=== PATIENT | female | born 1995 | race Two or more races ===

== ENCOUNTER 2020-08-27 12:03 | Emergency (ER) | payer OTHER ==
[~2020-08-27] VITALS: Ht 152.4 cm; Wt 41.3 kg
[2020-08-27] MEDS ORDERED: ZITHROMAX500 MG PO (15:23)
== END 2020-08-27 15:42 | disposition home or self-care (01) ==
LOC: ER 12:03
DX: B34.9 Viral infection, unspecified (principal); B96.0 Mycoplasma pneumoniae [M. pneumoniae] as the cause of diseases classified elsewhere; Z03.818 Encounter for observation for suspected exposure to other biological agents ruled out

== ENCOUNTER 2021-04-15 10:01 | Outpatient (CLI) | payer OTHER ==
[~2021-04-15 10:01] MED LIST: ZITHROMAX500 MG PO
== END 2021-04-15 10:09 | disposition home or self-care (01) ==
LOC: LAB 10:01
PROVIDERS: ATTEND Family Medicine
DX: Z03.818 Encounter for observation for suspected exposure to other biological agents ruled out (principal); Z11.52 Encounter for screening for COVID-19

== ENCOUNTER 2021-05-04 08:00 | Outpatient (CLI) | payer OTHER | END 2021-05-04 08:30 | disposition home or self-care (01) | LOC: PPH VACUNA 08:00 | DX: Z23 Encounter for immunization (principal) ==

== ENCOUNTER 2021-08-19 08:00 | Outpatient (CLI) | payer OTHER | END 2021-08-19 08:30 | disposition home or self-care (01) | LOC: PPH VACUNA 08:00 | PROVIDERS: ATTEND Emergency Medicine Pediatric Emergency Medicine | DX: Z23 Encounter for immunization (principal) ==

== ENCOUNTER 2021-09-06 21:48 | Emergency (ER) | payer OTHER ==
[~2021-09-06] VITALS: Ht 152.4 cm; Wt 49.0 kg
== END 2021-09-07 01:34 | disposition home or self-care (01) ==
LOC: ER 21:48
DX: J45.909 Unspecified asthma, uncomplicated (principal); Z03.818 Encounter for observation for suspected exposure to other biological agents ruled out

== ENCOUNTER 2021-12-04 09:00 | Outpatient (CLI) | payer OTHER | END 2021-12-04 09:15 | disposition home or self-care (01) | LOC: PPH VACUNA 09:00 | PROVIDERS: ATTEND Emergency Medicine Pediatric Emergency Medicine | DX: Z23 Encounter for immunization (principal) ==

== ENCOUNTER 2022-01-01 08:32 | Emergency (ER) | payer OTHER ==
[~2022-01-01] VITALS: Ht 152.4 cm; Wt 44.0 kg
[2022-01-01] MEDS ORDERED: STOOL SOFTENER50 MG PO (12:13)
[2022-01-01] MEDS ORDERED: IRON325 MG PO (12:13)
== END 2022-01-01 12:38 | disposition home or self-care (01) ==
LOC: ER 08:32
DX: D64.9 Anemia, unspecified (principal); G43.909 Migraine, unspecified, not intractable, without status migrainosus

== ENCOUNTER 2022-04-24 10:56 | Emergency (ER) | payer OTHER ==
[~2022-04-24] VITALS: Ht 152.4 cm; Wt 41.7 kg
[~2022-04-24 10:56] MED LIST changes: +IRON325 MG PO; +STOOL SOFTENER50 MG PO
== END 2022-04-24 16:43 | disposition home or self-care (01) ==
LOC: ER 10:56
DX: N94.6 Dysmenorrhea, unspecified (principal)

== ENCOUNTER 2022-05-31 08:11 | Emergency (ER) | payer OTHER ==
[~2022-05-31] VITALS: Ht 152.4 cm; Wt 42.6 kg
== END 2022-05-31 12:20 | disposition home or self-care (01) ==
LOC: ER 08:11
DX: K52.9 Noninfective gastroenteritis and colitis, unspecified (principal)

== ENCOUNTER 2022-08-11 08:00 | Outpatient (CLI) | payer OTHER | END 2022-08-11 08:05 | disposition home or self-care (01) | LOC: PPH VACUNA 08:00 | PROVIDERS: ATTEND Emergency Medicine Pediatric Emergency Medicine | DX: Z23 Encounter for immunization (principal) ==

== ENCOUNTER 2023-03-30 18:53 | Emergency (ER) | payer OTHER ==
[~2023-03-30] VITALS: Ht 152.4 cm; Wt 40.8 kg
[~2023-03-30 18:53] MED LIST changes: +BENZONATATE200 M1 PO; +IPRAT-ALBUT 0.5-3 ML IH
== END 2023-03-30 20:37 | disposition home or self-care (01) ==
LOC: ER 18:53
DX: N93.9 Abnormal uterine and vaginal bleeding, unspecified (principal)

== ENCOUNTER 2024-02-04 10:47 | Emergency (ER) | payer OTHER ==
[~2024-02-04] VITALS: Ht 152.4 cm; Wt 45.4 kg
[2024-02-04] MEDS ORDERED: TETANUS & DIPHTHERIA TOX,ADULT 0.5 ML VIAL IM ONE (14:00)
[2024-02-04] MEDS ORDERED: AMOXICILLIN/POTASSIUM CLAV 500 MG TABLET PO ONE (14:15)
== END 2024-02-04 16:12 | disposition home or self-care (01) ==
LOC: ER 10:48
DX: S81.852A Open bite, left lower leg, initial encounter (principal); W54.0XXA Bitten by dog, initial encounter; Y93.89 Activity, other specified; Y92.89 Other specified places as the place of occurrence of the external cause

== ENCOUNTER 2024-12-25 07:20 | Outpatient (CLI) | payer OTHER | END 2024-12-25 07:30 | disposition home or self-care (01) | LOC: PPH VACUNA 07:20 | PROVIDERS: ATTEND Emergency Medicine Pediatric Emergency Medicine | DX: Z23 Encounter for immunization (principal) ==